=== PATIENT | male | born 1995 | race Caucasian/White ===

== ENCOUNTER 2017-07-27 09:38 | Emergency (ER) | payer OTHER ==
[~2017-07-27] VITALS: Ht 172.7 cm; Wt 97.0 kg
[2017-07-27] MEDS ORDERED: IBUPROFEN 800 MG TABLET PO ONE (10:45)
[2017-07-27 11:32] VITALS: BP 115/80
== END 2017-07-27 11:34 | disposition home or self-care (01) ==
LOC: EMS 09:41
DX: S61.412A Laceration without foreign body of left hand, initial encounter (principal); W19.XXXA Unspecified fall, initial encounter; Y93.89 Activity, other specified; Y92.89 Other specified places as the place of occurrence of the external cause; Y99.8 Other external cause status
CPT/HCPCS: 12001; 99284